=== PATIENT | female | born 1975 | race Native Hawaiian/Other Pacific Islander ===

== ENCOUNTER → 2018-06-01 | Outpatient (CLI) | payer MEDICAID ==
[2018-06-01 09:41] VITALS: BP 136/86; PULSE 74; TEMP 98.5; BMI 37.3
--- NOTE | 2018-06-01 10:28 | P.HPBAR ---
Bariatric H&P - History & Physicial H&P Date: 06/01/18 History & Physicial: Visit/CC: initial clinic visit Patient initial contact: Initial weight: Initial weight in pounds: Height: 5 ft 6.5 in Initial BMI: Last weight: Current weight: 106.594 kg Current weight in pounds: 235.00 Current BMI: 37.3 [place] body weight (based on NIH guidelines): 60.101 kg Excess body weight loss: The patient is a 42 year-old F who presents for Bariatric Assessment. HPI: Referral from Alanis Correa and wants a sleeve. She reports occassional GERD 2x per month. She has a gallbladder and denies family gallbladder. No blood clots in the past. She reports a . Tummy tuck and butt lift done and she reports previous weight loss from 368 pounds. She lost down to 170 pounds and now with regain over 7 pounds of trial and now has knee arthritis. ABDOMEN: ASSESSMENT: 1. Morbid obesity 2. Diabetes PLAN: 1. Need food exercise journal with Ruddy Mc. This is 5 months. 2. Insurance reviewed. 3. Will need EGD Past Medical History History of Any Multi-Drug Resistant Organisms: None Reported Past Anesthesia/Blood Transfusion Reactions: No Reported Reaction Past Psychological History: No Psychological Hx Reported Smoking Status: Current every day smoker Past Alcohol Use History: None Reported Past Drug Use History: None Reported Surgical - Exam Vital Signs Temp Pulse BP 98.5 F 74 136/86 06/01/18 09:37 06/01/18 09:37 06/01/18 09:37 Bariatric Checklist Checklist: Plan: Checklist: EGD: 1. Hiatal hernia: 2. H. Pylori: HgbA1c: Vitamin D: Smoking: Current every day smoker Primary care physician referral: Psychiatry clearance: Cardiology clearance: Sleep study: Diet journal: VTE risk score: VTE risk level: Rehab needs at discharge:
[2018-06-01 12:12] LABS: HCT 45.7 % (34.0-46.0); MCH 30.8 pg (25.0-35.0); MCV 93.3 fL (80.0-100.0); Mean Platelet Volume 7.7; Platelet Count 258 k/uL (150-450); RBC 4.89 m/uL (3.80-5.40); RDW 13.4 % (11.5-15.5); WBC 8.1 k/uL (3.8-10.6)
[2018-06-01 12:17] LABS: INR 0.9 (<1.2); Partial Thromboplastin Time 23.2 sec (22.0-30.0); Prothrombin Time 9.7 sec (9.0-12.0)
[2018-06-01 18:52] LABS: Parathyroid Hormone Intact 82.5 pg/mL (14.0-72.0)
[2018-06-01 20:43] LABS: Albumin 4.5 g/dL (3.80-4.90); Albumin/Globulin Ratio 2.25 (1.60-3.17); Anion Gap 7.1 mmol/L (4.00-12.00); Calcium 9.6 mg/dL (8.7-10.3); Carbon Dioxide 26.9 mmol/L (21.6-31.8); Iron Saturation 20.97 (12.00-45.00); LDL Cholesterol,Calculated 83.2 mg/dL (0.0-131.0); Phosphorus 3.2 mg/dL (2.4-5.1); Potassium 4.3 mmol/L (3.5-5.5); Total Bilirubin 0.5 mg/dL (0.3-1.2); Total Protein 6.5 g/dL (6.2-8.2); VLDL Calculation 15.8 mg/dL (5.00-40.00)
[2018-06-01 20:49] LABS: Vitamin D 25 Hydroxy 16.8 ng/mL (30.0-100.0)
[2018-06-01 20:56] LABS: Folate, Serum 10.6 ng/mL
[2018-06-01 21:22] LABS: Hemoglobin A1C 4.9 % (4.0-6.0)
[2018-06-02 12:54] LABS: Zinc, Serum 79 ug/dL (60-130)
[2018-06-03 15:06] LABS: Vit B1(Thiamine) 81 ug/L (38-122)
[2018-06-06 00:43] LABS: Selenium 126 mcg/L (63-160)
[2018-06-06 08:31] LABS: Vitamin A 44 ug/dL (38-106)
== END ==
LOC: BARWHC3 09:11 → EDAGE 09:30
PROVIDERS: ATTEND Surgery Plastic and Reconstructive Surgery
DX: E66.01 Morbid (severe) obesity due to excess calories (principal); E11.9 Type 2 diabetes mellitus without complications; F17.200 Nicotine dependence, unspecified, uncomplicated; M17.9 Osteoarthritis of knee, unspecified; E44.0 Moderate protein-calorie malnutrition; E55.9 Vitamin D deficiency, unspecified; I11.9 Hypertensive heart disease without heart failure; G47.30 Sleep apnea, unspecified; Z68.43 Body mass index [BMI] 50.0-59.9, adult
CPT/HCPCS: 36415; 80053; 80061; 82306; 82525; 82607; 82728; 82746; 83036; 83540; 83550; 83735; 83970; 84100; 84134; 84255; 84425; 84443; 84590; 84630; 85027; 85610; 85730; 93005; 99201